=== PATIENT | male | born 1970 | race Caucasian/White ===

== ENCOUNTER 2016-11-29 16:58 | Emergency (ER) | payer OTHER ==
[~2016-11-29 16:58] MED LIST: CLEOCIN HCL300 M1 PO; IBUPROFEN800 MG PO; PEN-VEE K PO; VOLTAREN75 MG PO
[2016-11-29 17:18] LABS: BASOPHIL# 0.1 X10e3 (0-0.3); DIFF IND NO; EOSINOPHIL% 0.7 % (0.0-7.0); HEMATOCRIT 42.1 % (38.0-50.0); HEMOGLOBIN 14.4 gm/dL (13.0-16.0); LYMPHOCYTE# 1.7 X10e3 (1.0-3.5); MEAN CELL VOLUME 100.5 FL (83-96); MEAN CORPUSCULAR HEMOGLOBIN 34.3 PG (28-34); MEAN CORPUSCULAR HGB CONC 34.2 g/dL (30-36); MEAN PLATELET VOLUME 6.5 FL (6.5-11.5); MONOCYTE# 0.5 X10e3 (0-1.0); MONOCYTE% 10.5 % (3.0-12.0); NEUTROPHIL# 2.9 X10e3 (1.5-7.1); NEUTROPHIL% 55.8 % (40-75); PLATELET COUNT 131 X10e3 (140-420); RED BLOOD COUNT 4.19 X10e (3.90-5.60); RED CELL DISTRIBUTION WIDTH 12.6 % (11.0-15.5); WHITE BLOOD COUNT 5.2 X10e3 (4.0-10.5)
[2016-11-29 17:43] LABS: ALBUMIN SERUM 4.7 g/dL (3.5-5.0); ALKALINE PHOSPHATASE 73 U/L (32-92); ALT (SGPT) 34 U/L (10-40); AMYLASE 43 U/L (0-46); AST (SGOT) 180 U/L (10-42); BILIRUBIN, DIRECT 0.2 mg/dL (0.0-0.2); BILIRUBIN,INDIRECT 1.1 mg/dL (0.0-0.9); BILIRUBIN,TOTAL 1.3 mg/dL (0.2-2.0); BLOOD UREA NITROGEN 9 mg/dL (9-23); BUN/CREATININE RATIO 12.85; CALCIUM SERUM 8.8 mg/dL (8.4-10.2); CARBON DIOXIDE 27 mmol/L (22-31); CHLORIDE 101 mmol/L (100-111); CREATININE SERUM 0.7 mg/dL (0.6-1.4); GLOM FILT RATE Estimated ABOVE60 mL/min (>60); GLUCOSE FASTING 89 mg/dL (70-110); LIPASE 46 U/L (22-51); POTASSIUM 3.5 mmol/L (3.5-5.1); SODIUM 141 mmol/L (135-145)
== END 2016-11-29 18:35 | disposition left against medical advice (07) ==
LOC: CED 16:58
PROVIDERS: Student in an Organized Health Care Education/Training Program
DX: F10.10 Alcohol abuse, uncomplicated (principal); R19.7 Diarrhea, unspecified; I10 Essential (primary) hypertension; M54.12 Radiculopathy, cervical region; Z88.2 Allergy status to sulfonamides; Z88.1 Allergy status to other antibiotic agents; F17.200 Nicotine dependence, unspecified, uncomplicated
CPT/HCPCS: 80048; 80076; 82150; 83690; 85025; 99283; 99284

== ENCOUNTER 2017-04-11 20:45 | Emergency (ER) | payer OTHER ==
[~2017-04-11] VITALS: Ht 193 cm; Wt 72.6 kg
== END 2017-04-11 21:39 | disposition home or self-care (01) ==
LOC: CED 20:45
DX: H60.91 Unspecified otitis externa, right ear (principal); F17.210 Nicotine dependence, cigarettes, uncomplicated; Z88.5 Allergy status to narcotic agent; Z88.1 Allergy status to other antibiotic agents; Z88.2 Allergy status to sulfonamides
CPT/HCPCS: 99282

== ENCOUNTER 2017-04-21 08:31 | Emergency (ER) | payer OTHER ==
[~2017-04-21] VITALS: Ht 190.5 cm; Wt 72.6 kg
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
[2017-04-21 10:49] LABS: URINE SOURCE CLEAN CATCH
[2017-04-21 10:55] LABS: URINE APPEARANCE CLEAR; URINE BILIRUBIN NEG (NEG); URINE BLOOD NEG (NEG); URINE COLOR YELLOW; URINE GLUCOSE NEG (NEG); URINE KETONE TRACE (NEG); URINE LEUKOCYTE ESTERASE NEG (NEG); URINE NITRATE NEG (NEG); URINE PROTEIN TRACE (NEG); URINE SPECIFIC GRAVITY 1.022 (1.003-1.035); URINE UROBILINOGEN 0.2 MG/DL (NEG)
[2017-04-21 10:57] LABS: CULTURE INDICATED? NO
== END 2017-04-21 12:08 | disposition home or self-care (01) ==
LOC: CED 08:31
PROVIDERS: Physician Assistant
DX: S50.12XA Contusion of left forearm, initial encounter (principal); S80.01XA Contusion of right knee, initial encounter; S90.31XA Contusion of right foot, initial encounter; I10 Essential (primary) hypertension; G40.909 Epilepsy, unspecified, not intractable, without status epilepticus; F17.200 Nicotine dependence, unspecified, uncomplicated; Z88.2 Allergy status to sulfonamides; Z88.5 Allergy status to narcotic agent; Z88.1 Allergy status to other antibiotic agents; W22.8XXA Striking against or struck by other objects, initial encounter; Y93.64 Activity, baseball; Y92.009 Unspecified place in unspecified non-institutional (private) residence as the place of occurrence of the external cause
CPT/HCPCS: 73090; 73562; 73630; 74022; 81003; 99284

== ENCOUNTER 2017-05-21 20:14 | Emergency (ER) | payer OTHER ==
--- NOTE | ~2017-05-21 | CR72 ---
[facility] A Service of [facility] & [facility] RADIOLOGY TEXT RESULTS PATIENT: MIKE BLUNT LOCATION: [facility] : 68 UNIT #: [id number] AGE: [address]: Pawan Roberts MD SEX: M ORDER DR: [id number] [facility] [address] [place], [place] [address] [id number] E MR#: [id number] Acc #: [id number] NAME: MIKE BLUNT : 1970 SEX: M STUDY DATE/TIME: 05/21/2017 22:08 UNIT: [facility] ROOM: STUDY DESCRIPTION: CR Chest Single View Portable Attending Physician: Pawan Roberts M.D. Ordering Physician: Ed Doc Kashmir Mccain Primary Care Physician: No Primary Care Physician MEDICAL IMAGING REPORT This report is preliminary unless electronic signature is present EXAMINATION AP portable chest. DATE 05/21/2017 HISTORY Near-syncopal episode and shortness breath with activity today. COMPARISON PA and lateral chest, 06/20/2016. FINDINGS A single AP view of the chest shows both lungs to be clear. The heart is normal in size. The mediastinal contour is normal. No significant bone abnormalities are seen. IMPRESSION Normal AP portable chest. Dictated by... Nohemy Hardy M.D. THIS IS AN ELECTRONICALLY VERIFIED REPORT Nohemy Hardy M.D. at 05/22/2017 12:29 PM UZIEL/maeve TD: 05/21/2017 23:54 JOB #: [id number] MEDICAL IMAGING REPORT Page 1 of 1 COPY
--- NOTE | ~2017-05-21 | EKG ---
PATIENT: MIKE BLUNT UNIT #: [id number] Ventricular Rate: 75 BPM Atrial Rate: 75 BPM P-R Interval: 154 ms QRS Duration: 102 ms Q-T Interval: 394 ms QTC Calculation(Bezet): 439 ms P [place]: 73 degrees Calculated R [place]: 58 degrees Calculated T [place]: 60 degrees Diagnosis Line: Normal sinus rhythm Diagnosis Line: Normal ECG Diagnosis Line: No previous ECGs available Diagnosis Line: Confirmed by EVERT SHETTY MD ([id number]) on Diagnosis Line: 05/23/2017 4:32:07 PM INTERPRETING MD: DARRICK
[2017-05-21 22:51] LABS: BASOPHIL# 0.1 X10e3 (0-0.3); BASOPHIL% 0.9 % (0-2.5); DIFF IND NO; EOSINOPHIL% 0.6 % (0.0-7.0); HEMATOCRIT 40.3 % (38.0-50.0); HEMOGLOBIN 13.7 gm/dL (13.0-16.0); LYMPHOCYTE# 2.1 X10e3 (1.0-3.5); LYMPHOCYTE% 28.9 % (17.0-45.0); MEAN CELL VOLUME 93.9 FL (83-96); MEAN CORPUSCULAR HGB CONC 34.1 g/dL (30-36); MEAN PLATELET VOLUME 7.4 FL (6.5-11.5); MONOCYTE# 0.9 X10e3 (0-1.0); MONOCYTE% 12.9 % (3.0-12.0); NEUTROPHIL# 4.1 X10e3 (1.5-7.1); NEUTROPHIL% 56.7 % (40-75); PLATELET COUNT 257 X10e3 (140-420); RED BLOOD COUNT 4.29 X10e (3.90-5.60); RED CELL DISTRIBUTION WIDTH 16.7 % (11.0-15.5); WHITE BLOOD COUNT 7.2 X10e3 (4.0-10.5)
[2017-05-21 23:05] LABS: POC - TROPONIN <0.05 ng/mL (<=0.05)
[2017-05-21 23:15] LABS: ALBUMIN SERUM 4.6 g/dL (3.5-5.0); BILIRUBIN, DIRECT 0.3 mg/dL (0.0-0.2); BILIRUBIN,INDIRECT 1.6 mg/dL (0.0-0.9); BILIRUBIN,TOTAL 1.9 mg/dL (0.2-2.0); BUN/CREATININE RATIO 10.9; CALCIUM SERUM 9.2 mg/dL (8.4-10.2); CREATININE SERUM 1.1 mg/dL (0.6-1.4); GLOM FILT RATE Estimated 79.5 mL/min (>60); POTASSIUM 3.1 mmol/L (3.5-5.1); PROTEIN TOTAL SERUM 9.5 g/dL (6.0-8.3)
== END 2017-05-22 00:13 | disposition home or self-care (01) ==
LOC: CED 20:14
PROVIDERS: Emergency Medicine
DX: R55 Syncope and collapse (principal); F10.10 Alcohol abuse, uncomplicated; E87.6 Hypokalemia; Z98.890 Other specified postprocedural states; Z88.1 Allergy status to other antibiotic agents; Z88.8 Allergy status to other drugs, medicaments and biological substances
CPT/HCPCS: 36415; 71010; 80048; 80076; 82553; 84484; 85025; 93005; 96360; 99284